=== PATIENT | female | born 1990 | race Two or more races ===

== ENCOUNTER 2025-03-28 20:14 | Emergency (ER) | payer MEDICAID, SELFPAY ==
[2025-03-28 20:15] VITALS: BMI 30.2
--- NOTE | 2025-03-28 20:19 | EKG_ITS ---
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
[2025-03-28 20:59] VITALS: BP 135/94; PULSE 79; RESP 18; TEMP 37; O2SAT 96
--- NOTE | 2025-03-28 21:10 | PD.EDCHEST ---
ED Chest Pain RME/HPI General Chief Complaint: Chest Pain Stated Complaint: CHEST PAIN, UPPER ABD PAIN Time Seen by Provider: 03/28/25 21:08 Arrival date/time: 03/28/25 20:14 34F with history of anxiety presents to ED with episodes of chest tightness earlier, but feels a lot better now. Patient denies SOB and URI symptoms. Patient's had increased stress in life recently due to daughter have appendicitis several days ago. Limitations: no limitations Related Data Previous Rx's ?Medication ?Instructions ?Recorded hydrocodone 10 mg-acetaminophen 1 tab PO Q6H PRN pain #20 tabs 12/28/17 325 mg tablet ([place]) Allergies Allergy/AdvReac Type Severity Reaction Status Date / Time Penicillins Allergy Unknown SWELLING Verified 03/28/25 20:15 Review of Systems Review of Systems Systems Reviewed: All systems reviewed, normal except as documented Cardiovascular Cardiovascular: Reports as per HPI and Reports chest pain (tightness) Past Medical History Past Medical History NEUROLOGIC: Negative Neurological Disorders or Seizures CARDIAC: Negative Cardiac Disorders or Congestive Heart Failure RESPIRATORY: Negative Chronic Obstructive Pulmonary Disease (COPD), Tuberculosis or Sleep Apnea GASTROINTESTINAL: Positive Gastrointestinal Disorders and Gall Bladder Disease; Negative Hepatitis or Colorectal Cancer GENITOURINARY: Negative Genitourinary Disorders or Renal Disease REPRODUCTIVE: Negative Breast Cancer, Endometriosis, Genital Herpes, Gonorrhea, Pelvic Inflammatory Disease, Previous Pregnancies, Syphilis or Uterine Prolapse MUSCULOSKELETAL: Negative Musculoskeletal Disorders ENDOCRINE: Negative Endocrine Disorders, Diabetes Mellitus Type 1 or Diabetes Mellitus Type 2 HEMATOLOGIC: Negative Blood Disorders, Anemia, Leukemia or Clotting Problems OTHER HISTORY: Positive Chicken Pox; Negative Hospitalization, Autoimmune Disease, Shingles, Falls, Blood Transfusions, Blood Transfusion Reaction, Anesthesia Reactions, Organ Transplant, Chemotherapy, Radiation Therapy, Hyperbaric Therapy, MRSA, VRSA, Vancomycin-Resistant Enterococci, Measles, Mumps, Clostridium Difficile, Breast Cancer, Cervical Cancer, Colorectal Cancer, Lung Cancer or Ovarian Cancer Family History FAMILY HISTORY: Negative Family Psychiatric Problems, Family Respiratory Disorders, Family Cardiac Disorders, Family Gastrointestinal Problems, Family Cancer, Family Surgery or Family Anesthesia Reaction Surgical History SURGICAL: Positive Tubal Ligation (2016) and Section (); Negative Cardiac Surgery, Endocrine Surgery, Ear Surgery, Abdominal Surgery, Nephrectomy, Joint Replacement, Neurologic Surgery, Brain Shunt, Mastectomy, Lumpectomy or Organ Transplant Social History SMOKING STATUS: Never smoker SUBSTANCE USE: does not use ED Exam General Limitations: Present no limitations General appearance: Present alert and anxious (crying) Head Head exam: Present atraumatic Neck Neck exam: Present normal inspection, full ROM and trachea midline Chest Chest inspection: Present normal inspection and symmetric chest wall rise Respiratory Respiratory exam: Present normal lung sounds bilaterally Cardiovascular Cardiovascular exam: Present regular rate, normal rhythm and normal heart sounds Neurological Exam Neurological exam: Present alert and oriented X3 Psychiatric Psychiatric exam: Present normal affect and anxious (crying) Skin Skin exam: Present warm, dry, intact and normal color Course Quality Measures none Orders Category Date Time Status EKG (ED ONLY) *Do not use* NOW Care 03/28/25 20:19 Completed EKG (ED Only) Stat Exams 03/28/25 20:19 Draft Vital Signs Vital signs: Vital Signs Temperature 98.6 F 03/28/25 20:59 Pulse Rate 79 03/28/25 20:59 Respiratory Rate 18 03/28/25 20:59 Blood Pressure 135/94 H 03/28/25 20:59 Pulse Oximetry (%) 96 03/28/25 20:59 Oxygen Delivery Method Room Air 03/28/25 20:59 O2 at 96% on RA and WNLs Chest Pain MDM Narrative MDM Narrative:: 34F with history of anxiety presents to ED with episodes of chest tightness earlier, but feels a lot better now. Patient denies SOB and URI symptoms. Patient's had increased stress in life recently due to daughter have appendicitis several days ago. Physical exam reveals clear lungs and normal WOB. RRR. Patient is afebrile, alert, but anxious/crying. EKG is NSR with T-wave inversion in V1, which is seen in both previous EKGs here. Patient declines Valium and observation period. Will return if worsening. Patient data External records reviewed:: [facility] previous records Clinical information provided by:: patient Social determinants that could affect healthcare access:: mental health Patient has the following chronic illnesses:: anxiety How is presenting disease/condition affected by chronic disease/condition?: exacerbated by Evaluation data The following diagnostics were reviewed and interpreted by me:: EKG tracing(s) Lab and/or radiology exams considered but not ordered:: ordered Interpretation Summary: above Medications / Prescriptions Medications or Prescriptions considered but not ordered:: not ordered Medication administrations:: n/a Consultations Consultation(s) initiated? (list below): No Diagnosis Chest Pain Differential Diagnosis: fracture of rib, pneumothorax, stable angina, unstable angina pectoris, atypical chest pain, st elevation myocardial infarction, costochondritis, chest pain, biliary colic and other (anxiety stress ) Most likely diagnosis given after review of the tests above:: anxiety due to stress, atypical chest pain Admission Indicated Admission indicated?: not indicated Admission Request Was there a request for admission?: No Disposition Plan Disposition Plan: Discharge Discharge Attestation Discharge Attestation: The patient and all family members were given an opportunity to ask questions and understood the discharge instructions. Discharge instructions specifically effects, indications for sooner follow up or return to the emergency department, and the expected course of current diagnosis. Patient condition: Stable Discharge Plan Plan Patient Disposition: HOME (Self Care) Discharge Disposition comment: Stable Prescriptions/Referrals Prescriptions/Med Rec: No Action hydrocodone-acetaminophen [[place]] 10-325 mg tablet 1 tab PO Q6H MDD 3 PRN (Reason: pain) Qty: 20 0RF Problem List Clinical Impression: Atypical chest pain, Anxiety in acute stress reaction Patient/Caregiver Discharge Instructions Education Materials: Your Body's Response to Anxiety, ED Chest Pain, Uncertain Cause Additional Instructions: Please follow-up with PCP within 24-48 hours and return immediately if symptoms worsen. Print Language: Amharic Stand Alone Forms: Patient Portal Info Letter BLANCHE/KRISTINE Supervising Physician LISA Supervising Physician: Dr. Iverson
== END 2025-03-28 21:25 | disposition home or self-care (01) ==
LOC: SERX 21:23
PROVIDERS: Emergency Provider Emergency Medicine
DX: F43.0 Acute stress reaction (principal); R07.89 Other chest pain; I49.8 Other specified cardiac arrhythmias; I45.10 Unspecified right bundle-branch block
CPT/HCPCS: 93005; 99281